=== PATIENT | male | born 1955 | race Caucasian/White ===

== ENCOUNTER → 2017-03-26 | Outpatient (CLI) | payer BC | END | disposition home or self-care (01) | LOC: LAB.O 14:30 | PROVIDERS: ATTEND Urology | DX: R97.20 Elevated prostate specific antigen [PSA] (principal) ==

== ENCOUNTER → 2017-05-14 | Outpatient (CLI) | payer BC ==
--- NOTE | 2017-05-14 16:53 | CT ---
. EXAM DESCRIPTION: Head: CT, noncontrast. CLINICAL HISTORY: DIZZINESS AND GIDDINESS COMPARISON: Ultrasound Doppler carotid and vertebral vessels. TECHNIQUE: Non-helical axial scans through the skull and brain, at 2.5 mm intervals, non-contrast. Coronal and sagittal 2.0 mm reconstructions. Total Exam DLP: 773.97 mGy-cm. This exam was performed according to our departmental dose-optimization program which includes automated exposure control, adjustment of the mA and/or kV according to patient size and/or use of iterative reconstruction technique; to reduce radiation dose to as low as reasonably achievable (ALARA). FINDINGS: No hemorrhage, no mass-effect, and no midline shift. Normal johnson-white matter differentiation. No abnormal radiodense material in the brain parenchyma. Vascular calcifications not present; physiologic calcifications in the pineal gland and choroid plexus. No effacement or displacement of the ventricles, CSF spaces, or subdural spaces. No extra axial fluid collection or hemorrhage. No gross abnormalities of the bony calvarium. Included paranasal sinuses and mastoid air cells are well - aerated. IMPRESSION: 1. No hemorrhage, no mass effect, no midline shift. Normal CT scan of the brain and head without IV contrast. 2. CT scans are insensitive for detecting small CVAs in the first 24 hours after onset. Evaluation of the brain stem is also limited. If symptoms persist, consider MRI scan of the brain with diffusion imaging. Electronically signed by: Adan Hollis MD 05/14/2017 4:52 PM CDT
--- NOTE | 2017-05-15 09:35 | US ---
EXAM DESCRIPTION: Carotid Duplex: Ultrasound. CLINICAL HISTORY: DIZZINESS AND GIDDINESS COMPARISON: CT scan of the head on the same visit. TECHNIQUE: Transcutaneous scanning utilizing 2-dimensional and Doppler modes to evaluate the bilateral carotid systems and vertebral arteries. Percentage of diameter of stenosis or no stenosis recorded will be based upon NASCET criteria. FINDINGS: Peak systolic/end diastolic (CM-Sec) CCA Right 82/13 Left 79/24. ICA Right proximal 55/13, distal 69/26. Left proximal 52/16, Distal 52/22. Vertebral Right 26/8 Left 35/11. ECA (PS Only) Right 74 left 67. ICA/CCA peak systolic ratio: Right 0.8 Left 0.7 ICA/CCA end diastolic ratio: Right 2.0 Left 0.7 Vertebral arteries: antegrade flow. Comments Comments: 14% area stenosis in the right CCA bulb. 60% area stenosis on the left. IMPRESSION: 1. Doppler evaluation of the bilateral carotid systems and vertebral arteries shows no hemodynamically significant stenoses. 2. No significant amount of plaque seen in the carotid arteries bilaterally. Bilateral vertebral arteries showed antegrade-cephalad flow. Electronically signed by: Adan Hollis MD 05/15/2017 9:34 AM CDT
== END ==
LOC: CT 14:34
PROVIDERS: ATTEND Family Medicine
DX: R42 Dizziness and giddiness (principal)